=== PATIENT | male | born 1975 | race African-American/Black ===

== ENCOUNTER 2021-01-10 06:45 | Inpatient (IN) | payer SELFPAY ==
[2021-01-10] MEDS ORDERED: Clindamycin/D5W 900 mg/50 ml Premix Bag ONE (07:02)
[2021-01-10] MEDS ORDERED: Ondansetron PF 4 MG/2 ML Vial ONE (07:02)
[2021-01-10] MEDS ORDERED: Morphine 4 MG/ML VIAL ONE (07:02)
[2021-01-10] MEDS ORDERED: Dexamethasone 10 MG/ML VIAL ONE (08:03)
[2021-01-10 08:33] LABS: ALT (SGPT) 53 U/L (8-55); AST (SGOT) 197 U/L (5-34); Alkaline Phosphatase 98 U/L (40-110); Bilirubin, Direct 0.5 mg/dL (0.1-0.3); Bilirubin, Total 0.8 mg/dL (0.2-1.2); Protein, Total 7.8 g/dL (6.0-8.3)
[2021-01-10 08:53] LABS: HBCM Index 0.08 S/CO (0-0.79); HBSAg Index 0.21 S/CO (0-0.99); Hep A IgM AB Non-Reactive (NonReactive); Hep A IgM S/CO 0.14 S/CO (0-0.79); Hep B Surf Ag Non-Reactive S/CO (NonReactive); Hep C IgG Ab Non-Reactive (NonReactive); Hep C Index 0.07 S/CO (0-0.79); Hepatitis B Core IgM Abs Non-Reactive (NonReactive)
[2021-01-10] MEDS ORDERED: Ondansetron ODT 4 MG TAB PO PRN (08:56)
[2021-01-10] MEDS ORDERED: Zolpidem Tartrate 5 MG TAB PO PRN (08:56)
[2021-01-10] MEDS ORDERED: Ondansetron PF 4 MG/2 ML Vial IVP PRN (08:56)
[2021-01-10] MEDS ORDERED: Bisacodyl 10 MG SUPP PR PRN (08:56)
[2021-01-10] MEDS ORDERED: Senokot S 8.6-50 MG TAB PO PRN (08:56)
[2021-01-10] MEDS ORDERED: Guaifenesin DM 100-10/5 ML UDCUP PO PRN (08:56)
[2021-01-10] MEDS: Famotidine 20 MG TAB PO SCH ×2 (09:47→20:09)
[2021-01-10] MEDS ORDERED: Nicotine 14 MG PATCH ONE (09:49)
[2021-01-10] MEDS ORDERED: Famotidine/PF 20 mg/2ml Vial ONE (09:49)
[2021-01-10] MEDS: Famotidine/PF 20 mg/2ml Vial SLOW IVP SCH ×2 (09:55→20:09)
[2021-01-10] MEDS: Multivitamins, Adult 10 ML, Folic Acid 1 MG in Dextrose 5 %-0.45 % NaCl 1,000 ML IV SCH (10:22)
[2021-01-10] MEDS: Ampicillin/Sulbactam 3 GM in Sodium Chloride 0.9% 100 ML IVPB SCH ×2 (13:31→17:20)
[2021-01-10 13:43] LABS: SARS-CoV-2 PCR by NAA Not Detected (NotDetected)
[2021-01-10 14:48] VITALS: BMI 30.1
[2021-01-10] MEDS: methylPREDNISolone Sod Succ 40 MG VIAL IVP SCH ×2 (15:05→21:58)
[2021-01-10] MEDS: Ketorolac Tromethamine 30 MG/ML VIAL IVP PRN (16:27)
[2021-01-10] MEDS: Lorazepam 2 MG/ML VIAL SLOW IVP PRN (20:08)
[2021-01-10] MEDS: HYDROcodone/Acetaminophen 5/325 mg Tablet PO PRN (23:11)
[2021-01-11] MEDS: Ampicillin/Sulbactam 3 GM in Sodium Chloride 0.9% 100 ML IVPB SCH ×5 (00:30→23:10)
[2021-01-11] MEDS: Ketorolac Tromethamine 30 MG/ML VIAL IVP PRN ×2 (04:23→11:32)
[2021-01-11] MEDS: Lorazepam 2 MG/ML VIAL SLOW IVP PRN ×3 (04:23→17:13)
[2021-01-11] MEDS: methylPREDNISolone Sod Succ 40 MG VIAL IVP SCH ×3 (05:29→20:39)
[2021-01-11 05:35] LABS: Lactic Acid 1.1 mmol/L (0.5-2.2)
[2021-01-11 05:42] LABS: ALT (SGPT) 45 U/L (8-55); AST (SGOT) 109 U/L (5-34); Albumin 3.5 g/dL (3.5-5.0); Alkaline Phosphatase 83 U/L (40-110); Anion Gap 17 mmol/L (10-20); BUN (Urea Nitrogen) 11 mg/dL (8.9-20.6); Bilirubin, Total 0.5 mg/dL (0.2-1.2); Calc. Creatinine Clearance 155 mL/min (70-130); Calcium 8.5 mg/dL (7.8-10.44); Carbon Dioxide 22 mmol/L (22-29); Chloride 98 mmol/L (98-107); Globulin 3.5 g/dL (2.4-3.5); Glucose 171 mg/dL (70-105); Magnesium 2.8 mg/dL (1.6-2.6); Potassium 3.8 mmol/L (3.5-5.1); Sodium 133 mmol/L (136-145)
[2021-01-11 06:12] LABS: Hemoglobin 12.5 g/dL (14.0-18.0); Mean Corpuscular HGB CONC 32.7 g/dL (32.0-36.0); Mean Corpuscular Volume 88.5 fL (78.0-98.0); Mean Platelet Volume 7.5 fL (7.4-10.4); Platelet Count 135 thou/uL (130-400); RBC Distribution Width 12.6 % (11.5-14.5); Red Blood Cell (RBC) Count 4.31 mill/uL (4.70-6.10); White Blood Cell (WBC) Count 18.6 thou/uL (4.8-10.8)
[2021-01-11 06:18] LABS: Band 12 % (5-11); Lymphocytes 7 % (21-51); MDiff Complete? YES; Monocytes 12 % (0-10); Neutrophil 68 % (42-75); Reactive Lymphocytes 1 % (0-10)
[2021-01-11] MEDS: Famotidine/PF 20 mg/2ml Vial SLOW IVP SCH ×2 (09:19→20:39)
[2021-01-11] MEDS: Thiamine HCl 200 MG/2 ML VIAL SLOW IVP SCH (09:19)
[2021-01-11] MEDS: Multivitamins, Adult 10 ML, Folic Acid 1 MG in Dextrose 5 %-0.45 % NaCl 1,000 ML IV SCH (09:20)
[2021-01-11] MEDS: Famotidine 20 MG TAB PO SCH ×2 (09:27→20:36)
[2021-01-11] MEDS ORDERED: Amlodipine 10 MG TAB PO SCH (17:00)
[2021-01-11] MEDS: Chlorhexidine Gluconate 15 ML UDCUP SSP SCH (17:11)
[2021-01-11] MEDS: HYDROcodone/Acetaminophen 5/325 mg Tablet PO PRN (20:39)
[2021-01-12] MEDS: Ampicillin/Sulbactam 3 GM in Sodium Chloride 0.9% 100 ML IVPB SCH ×4 (05:18→23:29)
[2021-01-12] MEDS: methylPREDNISolone Sod Succ 40 MG VIAL IVP SCH (05:18)
[2021-01-12] MEDS: Labetalol HCl 100 MG/20 ML VIAL SLOW IVP PRN ×4 (05:19→20:57)
[2021-01-12] MEDS: HYDROcodone/Acetaminophen 5/325 mg Tablet PO PRN ×3 (05:21→23:29)
[2021-01-12] MEDS: Chlorhexidine Gluconate 15 ML UDCUP SSP SCH ×3 (08:33→17:57)
[2021-01-12] MEDS: Hydrochlorothiazide 25 MG TAB PO SCH (08:34)
[2021-01-12] MEDS: Amlodipine 10 MG TAB PO SCH (08:34)
[2021-01-12] MEDS: Multivitamins, Adult 10 ML, Folic Acid 1 MG in Dextrose 5 %-0.45 % NaCl 1,000 ML IV SCH (08:35)
[2021-01-12] MEDS: Thiamine HCl 200 MG/2 ML VIAL SLOW IVP SCH (08:35)
[2021-01-12 08:39] LABS: ALT (SGPT) 40 U/L (8-55); AST (SGOT) 62 U/L (5-34); Albumin 3.6 g/dL (3.5-5.0); Alkaline Phosphatase 76 U/L (40-110); Anion Gap 10 mmol/L (10-20); BUN (Urea Nitrogen) 14 mg/dL (8.9-20.6); Bilirubin, Total 0.4 mg/dL (0.2-1.2); Calc. Creatinine Clearance 155 mL/min (70-130); Calcium 8.3 mg/dL (7.8-10.44); Carbon Dioxide 29 mmol/L (22-29); Chloride 100 mmol/L (98-107); Globulin 3.3 g/dL (2.4-3.5); Glucose 137 mg/dL (70-105); Potassium 3.9 mmol/L (3.5-5.1); Protein, Total 6.9 g/dL (6.0-8.3); Sodium 135 mmol/L (136-145)
[2021-01-12 08:49] LABS: Band 9 % (5-11); Hemoglobin 12.6 g/dL (14.0-18.0); Lymphocytes 20 % (21-51); MDiff Complete? YES; Mean Corpuscular HGB CONC 33.3 g/dL (32.0-36.0); Mean Corpuscular Hemoglobin 30.1 pg (27.0-31.0); Mean Corpuscular Volume 90.5 fL (78.0-98.0); Mean Platelet Volume 7.1 fL (7.4-10.4); Metamyelocyte 1 % (0-0); Monocytes 9 % (0-10); Myelocyte 2 % (0-0); Neutrophil 59 % (42-75); Platelet Count 195 thou/uL (130-400); RBC Distribution Width 12.7 % (11.5-14.5); Red Blood Cell (RBC) Count 4.18 mill/uL (4.70-6.10); White Blood Cell (WBC) Count 19.3 thou/uL (4.8-10.8)
[2021-01-12 09:28] LABS: Amphetamine Not Detected (NotDetected); Barbiturates Screen Not Detected (NotDetected); Benzodiazepine Screen Detected (NotDetected); Cocaine Metabolite Screen Not Detected (NotDetected); Medtox Control Line Valid? VALID (VALID); Medtox Reader # READER 4; Methadone Not Detected (NotDetected); Methamphetamine Not Detected (NotDetected); Opiate Screen Detected (NotDetected); Oxycodone Screen Not Detected (NotDetected); Phencyclidine (PCP) Not Detected (NotDetected); THC/Cannabinoid Screen Not Detected (NotDetected); Tricyclic Screen Not Detected (NotDetected)
[2021-01-12] MEDS: Nicotine 14 MG PATCH TOP SCH (14:34)
[2021-01-12] MEDS: Ketorolac Tromethamine 30 MG/ML VIAL IVP PRN (17:57)
[2021-01-13] MEDS: Labetalol HCl 100 MG/20 ML VIAL SLOW IVP PRN (03:33)
[2021-01-13] MEDS: Ampicillin/Sulbactam 3 GM in Sodium Chloride 0.9% 100 ML IVPB SCH ×4 (05:54→23:39)
[2021-01-13 06:23] LABS: Hemoglobin 12.9 g/dL (14.0-18.0); Mean Corpuscular HGB CONC 33.2 g/dL (32.0-36.0); Mean Corpuscular Hemoglobin 30.1 pg (27.0-31.0); Mean Corpuscular Volume 90.6 fL (78.0-98.0); Mean Platelet Volume 6.7 fL (7.4-10.4); Platelet Count 227 thou/uL (130-400); RBC Distribution Width 12.9 % (11.5-14.5); White Blood Cell (WBC) Count 15.5 thou/uL (4.8-10.8)
[2021-01-13 06:37] LABS: ALT (SGPT) 36 U/L (8-55); AST (SGOT) 47 U/L (5-34); Albumin 3.3 g/dL (3.5-5.0); Alkaline Phosphatase 63 U/L (40-110); Anion Gap 12 mmol/L (10-20); BUN (Urea Nitrogen) 7 mg/dL (8.9-20.6); Bilirubin, Total 0.4 mg/dL (0.2-1.2); Calc. Creatinine Clearance 149 mL/min (70-130); Calcium 7.9 mg/dL (7.8-10.44); Carbon Dioxide 29 mmol/L (22-29); Chloride 101 mmol/L (98-107); Glucose 101 mg/dL (70-105); Potassium 3.3 mmol/L (3.5-5.1); Protein, Total 6.3 g/dL (6.0-8.3); Sodium 139 mmol/L (136-145)
[2021-01-13] MEDS ORDERED: Electrolyte Replacement Protocol 1 EACH FS ONE (08:06)
[2021-01-13] MEDS ORDERED: Electrolyte Replacement Protocol FS PRN (08:45)
[2021-01-13 08:57] LABS: Band 4 % (5-11); Lymphocytes 27 % (21-51); MDiff Complete? YES; Metamyelocyte 2 % (0-0); Monocytes 11 % (0-10); Myelocyte 2 % (0-0); Neutrophil 47 % (42-75); Platelet Morphology Comment Appears Adequate; Polychromasia SLIGHT = 2-3 cells (100X) (0-2/hpf); Reactive Lymphocytes 7 % (0-10)
[2021-01-13] MEDS: Chlorhexidine Gluconate 15 ML UDCUP SSP SCH ×3 (08:58→17:42)
[2021-01-13] MEDS: Thiamine HCl 200 MG/2 ML VIAL SLOW IVP SCH (08:58)
[2021-01-13] MEDS: Hydrochlorothiazide 25 MG TAB PO SCH (08:58)
[2021-01-13] MEDS: Amlodipine 10 MG TAB PO SCH (08:58)
[2021-01-13] MEDS: Saccharomyces boulardii 250 MG CAP PO SCH (08:58)
[2021-01-13 09:39] LABS: Magnesium 2.5 mg/dL (1.6-2.6); Phosphorus 3.5 mg/dL (2.3-4.7)
[2021-01-13] MEDS ORDERED: Potassium Chloride 20 MEQ TAB PO SCH (09:45)
[2021-01-13] MEDS ORDERED: cloNIDine 0.1 MG TAB PO PRN (10:37)
[2021-01-13] MEDS: Multivitamins, Adult 10 ML, Folic Acid 1 MG in Dextrose 5 %-0.45 % NaCl 1,000 ML IV SCH (10:41)
[2021-01-13] MEDS ORDERED: Carvedilol 6.25 MG TAB PO SCH (10:45)
[2021-01-13] MEDS ORDERED: cloNIDine 0.1 MG TAB PO SCH (10:45)
[2021-01-13] MEDS ORDERED: Thiamine 100 MG TAB PO SCH (10:45)
[2021-01-13] MEDS: Folic Acid 1 MG TAB PO SCH (12:10)
[2021-01-13] MEDS: Nicotine 14 MG PATCH TOP SCH (14:25)
[2021-01-13] MEDS: Carvedilol 6.25 MG TAB PO SCH (17:42)
[2021-01-13] MEDS: HYDROcodone/Acetaminophen 5/325 mg Tablet PO PRN (19:59)
[2021-01-14] MEDS: Ampicillin/Sulbactam 3 GM in Sodium Chloride 0.9% 100 ML IVPB SCH ×4 (05:45→23:31)
[2021-01-14 06:31] LABS: Anion Gap 15 mmol/L (10-20); BUN (Urea Nitrogen) 7 mg/dL (8.9-20.6); Calc. Creatinine Clearance 135 mL/min (70-130); Calcium 8.5 mg/dL (7.8-10.44); Carbon Dioxide 28 mmol/L (22-29); Chloride 100 mmol/L (98-107); Glucose 129 mg/dL (70-105); Magnesium 2.5 mg/dL (1.6-2.6); Potassium 3.9 mmol/L (3.5-5.1); Sodium 139 mmol/L (136-145)
[2021-01-14 06:47] LABS: Band 8 % (5-11); Lymphocytes 44 % (21-51); MDiff Complete? YES; Mean Corpuscular HGB CONC 33.5 g/dL (32.0-36.0); Mean Corpuscular Hemoglobin 30.5 pg (27.0-31.0); Mean Corpuscular Volume 90.9 fL (78.0-98.0); Mean Platelet Volume 6.6 fL (7.4-10.4); Monocytes 13 % (0-10); Neutrophil 33 % (42-75); Platelet Count 296 thou/uL (130-400); RBC Distribution Width 12.8 % (11.5-14.5); Reactive Lymphocytes 2 % (0-10); Red Blood Cell (RBC) Count 4.58 mill/uL (4.70-6.10); White Blood Cell (WBC) Count 14.3 thou/uL (4.8-10.8)
[2021-01-14] MEDS: Chlorhexidine Gluconate 15 ML UDCUP SSP SCH ×3 (08:25→17:26)
[2021-01-14] MEDS: Saccharomyces boulardii 250 MG CAP PO SCH (08:25)
[2021-01-14] MEDS: Carvedilol 6.25 MG TAB PO SCH ×2 (08:25→16:03)
[2021-01-14] MEDS: Folic Acid 1 MG TAB PO SCH ×2 (08:27→08:29)
[2021-01-14] MEDS: Amlodipine 5 MG TAB PO SCH ×2 (08:27→19:56)
[2021-01-14] MEDS: Multivit, Therapeutic 1 TAB PO SCH (08:27)
[2021-01-14] MEDS: Thiamine 100 MG TAB PO SCH (08:27)
[2021-01-14] MEDS ORDERED: Amlodipine 10 MG TAB PO SCH (09:00)
[2021-01-14] MEDS: Nicotine 14 MG PATCH TOP SCH (13:06)
[2021-01-14] MEDS: Acetaminophen 325 MG TAB PO PRN ×2 (16:02→22:48)
[2021-01-15] MEDS: Labetalol HCl 100 MG/20 ML VIAL SLOW IVP PRN (00:24)
[2021-01-15] MEDS: Ampicillin/Sulbactam 3 GM in Sodium Chloride 0.9% 100 ML IVPB SCH (05:43)
[2021-01-15 05:47] LABS: Hemoglobin 12.8 g/dL (14.0-18.0); Mean Corpuscular HGB CONC 31.8 g/dL (32.0-36.0); Mean Corpuscular Volume 91.1 fL (78.0-98.0); Mean Platelet Volume 6.4 fL (7.4-10.4); Platelet Count 347 thou/uL (130-400); Red Blood Cell (RBC) Count 4.41 mill/uL (4.70-6.10); White Blood Cell (WBC) Count 16.1 thou/uL (4.8-10.8)
[2021-01-15 06:00] LABS: Anion Gap 12 mmol/L (10-20); BUN (Urea Nitrogen) 10 mg/dL (8.9-20.6); Calc. Creatinine Clearance 128 mL/min (70-130); Calcium 8.8 mg/dL (7.8-10.44); Carbon Dioxide 27 mmol/L (22-29); Chloride 104 mmol/L (98-107); Glucose 119 mg/dL (70-105); Potassium 3.7 mmol/L (3.5-5.1); Sodium 139 mmol/L (136-145)
[2021-01-15 06:06] LABS: Band 9 % (5-11); Lymphocytes 21 % (21-51); MDiff Complete? YES; Monocytes 16 % (0-10); Myelocyte 5 % (0-0); Neutrophil 48 % (42-75); Reactive Lymphocytes 1 % (0-10)
[2021-01-15] MEDS: Chlorhexidine Gluconate 15 ML UDCUP SSP SCH (08:39)
[2021-01-15] MEDS: Thiamine 100 MG TAB PO SCH (08:40)
[2021-01-15] MEDS: Carvedilol 6.25 MG TAB PO SCH (08:40)
[2021-01-15] MEDS: Saccharomyces boulardii 250 MG CAP PO SCH (08:40)
[2021-01-15] MEDS: Multivit, Therapeutic 1 TAB PO SCH (08:40)
[2021-01-15] MEDS: Amlodipine 5 MG TAB PO SCH (08:40)
[2021-01-15] MEDS: Folic Acid 1 MG TAB PO SCH (08:40)
[2021-01-15 11:38] VITALS: BP 140/92; TEMP 98
== END 2021-01-15 11:51 | disposition home or self-care (01) | DRG 854 ==
LOC: ERS 06:45 → ERHOLD 07:47 → SURG A 15:06
PROVIDERS: ADMIT Internal Medicine; ATTEND Internal Medicine
PROC: HZ2ZZZZ Detoxification Services for Substance Abuse Treatment (ICD-10-PCS; 2021-01-10)
PROC: 0C9PXZZ Drainage of Tonsils, External Approach (ICD-10-PCS; principal; 2021-01-13)
DX: A40.1 Sepsis due to streptococcus, group B (principal); J36 Peritonsillar abscess; E87.1 Hypo-osmolality and hyponatremia; E87.2 Acidosis; I10 Essential (primary) hypertension; F17.210 Nicotine dependence, cigarettes, uncomplicated; E87.6 Hypokalemia; R94.5 Abnormal results of liver function studies; F10.10 Alcohol abuse, uncomplicated; E83.39 Other disorders of phosphorus metabolism; E66.9 Obesity, unspecified; Z20.822 Contact with and (suspected) exposure to COVID-19; Z68.30 Body mass index [BMI] 30.0-30.9, adult; Z71.6 Tobacco abuse counseling
CPT/HCPCS: 36415; 80048; 80053; 80074; 80306; 83605; 83735; 83935; 84100; 85025; 87070; 87081; 87205; 87430; 87635; 96365; 96375; J0295; J1100; J1885; J2060; J2270; J2405; J2920; J3411; J3490; J7042; S0028; U0003; U0005

== ENCOUNTER 2021-01-27 16:18 | Emergency (ER) | payer SELFPAY ==
[2021-01-27 17:09] LABS: Hemoglobin 12.5 g/dL (14.0-18.0); Mean Corpuscular HGB CONC 33.5 g/dL (32.0-36.0); Mean Corpuscular Hemoglobin 30.4 pg (27.0-31.0); Mean Corpuscular Volume 90.8 fL (78.0-98.0); Platelet Count 133 thou/uL (130-400); RBC Distribution Width 13.6 % (11.5-14.5); Red Blood Cell (RBC) Count 4.12 mill/uL (4.70-6.10); White Blood Cell (WBC) Count 3.4 thou/uL (4.8-10.8)
[2021-01-27 17:25] LABS: ALT (SGPT) 47 U/L (8-55); AST (SGOT) 71 U/L (5-34); Albumin 3.8 g/dL (3.5-5.0); Alkaline Phosphatase 88 U/L (40-110); Anion Gap 17 mmol/L (10-20); BUN (Urea Nitrogen) 8 mg/dL (8.9-20.6); Bilirubin, Total 0.4 mg/dL (0.2-1.2); Calc. Creatinine Clearance 0 mL/min (70-130); Calcium 8.9 mg/dL (7.8-10.44); Carbon Dioxide 24 mmol/L (22-29); Chloride 106 mmol/L (98-107); Globulin 4.6 g/dL (2.4-3.5); Glucose 128 mg/dL (70-105); Potassium 4.3 mmol/L (3.5-5.1); Protein, Total 8.4 g/dL (6.0-8.3); Sodium 143 mmol/L (136-145)
[2021-01-27 17:27] LABS: Band 24 % (5-11); Eosinophils 1 % (0-10); Hypochromia SLIGHT = 6-15 cells (100X) (0-5/hpf); Lymphocytes 43 % (21-51); MDiff Complete? YES; Monocytes 8 % (0-10); Neutrophil 23 % (42-75); Platelet Morphology Comment Appears Adequate; Polychromasia SLIGHT = 2-3 cells (100X) (0-2/hpf); Reactive Lymphocytes 1 % (0-10)
[2021-01-27 17:59] LABS: Acetaminophen Less than 6.0 mcg/mL (10.0-30.0); Alcohol 272 mg/dL (Less than 10); Salicylate Less than 8.0 mg/dL (15.0-30.0)
== END 2021-01-27 18:51 | disposition home or self-care (01) ==
LOC: ERS 16:18
DX: R55 Syncope and collapse (principal); F10.129 Alcohol abuse with intoxication, unspecified; F17.210 Nicotine dependence, cigarettes, uncomplicated; I10 Essential (primary) hypertension; Z79.899 Other long term (current) drug therapy
CPT/HCPCS: 36415; 80053; 80307; 85025; 93005